=== PATIENT | female | born 2000 | race Caucasian/White ===

== ENCOUNTER → 2019-06-25 | Outpatient (CLI) | payer OTHER | LOC: COL.RAD 08:12 | DX: R10.11 Right upper quadrant pain (principal) ==

== ENCOUNTER 2021-06-24 01:46 | Emergency (ER) | payer SELFPAY ==
[~2021-06-24] VITALS: Ht 177.8 cm; Wt 60.0 kg
[2021-06-24 02:04] VITALS: TEMP 98.1
[2021-06-24 02:22] VITALS: BP 137/79; PULSE 86
== END 2021-06-24 02:35 | disposition home or self-care (01) ==
LOC: COL.ER 01:46
DX: U07.1 COVID-19 (principal)

== ENCOUNTER 2021-08-25 11:23 | Day surgery (SDC) | payer OTHER ==
[~2021-08-25] VITALS: Ht 177.8 cm; Wt 60.7 kg
[2021-08-25] MEDS ORDERED: TOPAMAX 25MG25 M1 PO (11:57)
[2021-08-25] MEDS ORDERED: ZYRTEC 10MG10 MG PO (11:58)
[2021-08-25 12:26] VITALS: BP 109/78; PULSE 70; TEMP 98.3
[2021-08-25] MEDS ORDERED: MOTRIN 600600 MG/TAB PO (14:04)
[2021-08-25] MEDS ORDERED: NORCO 325 MG-51 TAB PO (14:05)
--- NOTE | 2021-08-25 15:00 | NUR ---
PT TO BAY 4 PER CART FROM OR. RECEIVED REPORT FROM RAYMOND GRANT AND Franck JASSO CRNA. VS OBTAINED. PT COMPLAINING OF PAIN. Franck JASSO CRNA STATES GOING TO GIVE PAIN MEDICATIONS. WILL CONTINUE TO MONITOR PT.
--- NOTE | 2021-08-25 15:04 | NUR ---
Dima JASSO CRNA AT BEDSIDE. GAVE PT FENTANYL IV FOR SEVERE PAIN. O2 SATS DECREASED TO 79%. NC 3L APPLIED. PT O2 SAT INCREASED WITHOUT DIFFICULTY. PT RESTING COMFORTABLY. MOM AT THE BEDSIDE.
[2021-08-25 15:15] VITALS: BP 104/59; PULSE 69; TEMP 98.3
--- NOTE | 2021-08-25 15:20 | NUR ---
02 REMOVED. PT ALERT AND TOLERATING ICE CHIPS WITHOUT DIFFICULTY. WILL CONTINUE TO MONITOR PT. PT O2 SATS CONTINUED 100%.
[2021-08-25 15:30] VITALS: BP 115/79; PULSE 70
--- NOTE | 2021-08-25 15:30 | NUR ---
PT TOLERATING JUICE, SPRITE, AND MUFFIN. PT STATES PAIN IS MUCH BETTER. PT DENIES ANY NEEDS AT THIS TIME. WILL CONTINUE TO MONITOR.
[2021-08-25 15:45] VITALS: BP 115/73; PULSE 58
--- NOTE | 2021-08-25 15:45 | NUR ---
PT CONTINUES TO STATE SHE IS DOING WELL. PT STATES SHE IS READY FOR DISCHARGE.
--- NOTE | 2021-08-25 16:05 | NUR ---
IV DC'D. PT TOLERATED WELL.
--- NOTE | 2021-08-25 16:15 | NUR ---
DISCHARGE EDUCATION COMPLETED WITH PT AND HER MOTHER. THEY VERBALIZED UNDERSTANDING OF HOME AND FOLLOW UP CARE. ALL QUESTIONS ANSWERED. DISCHARGE PAPERWORK GIVEN TO PT.
--- NOTE | 2021-08-25 16:30 | NUR ---
PT OFF UNIT PER WHEELCHAIR. PT DISCHARGE TO HOME WITH MOTHER PER PERSONAL VEHICLE.
== END 2021-08-25 16:30 | disposition home or self-care (01) ==
LOC: SDCO 11:23
DX: K41.90 Unilateral femoral hernia, without obstruction or gangrene, not specified as recurrent (principal); Z86.16 Personal history of COVID-19; D64.9 Anemia, unspecified
CPT/HCPCS: C1781; J1885; J2405; J2704; J3010; J7120